=== PATIENT | female | born 1985 | race Caucasian/White ===

== ENCOUNTER 2023-01-17 09:27 | Outpatient (CLI) | payer OTHER, SELFPAY ==
--- NOTE | 2023-01-17 12:00 | NEURO_ITS ---
Impression: # Complains of pain and numbness around thenar eminence following a cat bite. # Normal Nerve Conduction Study. # No Carpal Tunnel Syndrome or ulnar neuropathy. # Needle/EMG exam not requested. # Clinical correlation recommended. #could be related to small branch involvement. Nerve Conduction Studies Anti Sensory Summary Table Stim Site NR Peak (ms) P-T Amp (?V) Site1 Site2 Delta-P (ms) Dist (cm) Juan Alberto (m/s) Right Median Anti Sensory (2-3nd Digit) Wrist 2.6 47.9 Wrist 2-3nd Digit 2.6 14.0 54 Wrist 2.5 86.1 Wrist 2-3nd Digit 2.6 14.0 54 Right Radial Anti Sensory (Base 1st Digit) Wrist 2.1 22.7 Wrist Base 1st Digit 2.1 0.0 Right Ulnar Anti Sensory (5th Digit) Wrist 2.4 72.8 Wrist 5th Digit 2.4 14.0 58 Motor Summary Table Stim Site NR Onset (ms) O-P Amp (mV) Site1 Site2 Delta-0 (ms) Dist (cm) Juan Alberto (m/s) Right Median Motor (Abd Poll Brev) Wrist 2.6 4.1 Elbow Wrist 4.9 28.0 57 Elbow 7.5 2.9 Right Ulnar Motor (Abd Dig Minimi) Wrist 2.8 7.2 A Elbow Wrist 5.0 28.0 56 A Elbow 7.8 6.9 F Wave Studies NR F-Lat (ms) L-R F-Lat (ms) Right Median (Mrkrs) (Abd Poll Brev) 26.67 Right Ulnar (Mrkrs) (Abd Dig Min) 27.39 MTDD
== END 2023-01-17 09:28 | disposition home or self-care (01) ==
LOC: ANHNEURO 09:32
PROVIDERS: PCP Family Medicine; Visit Provider Physician Assistant
DX: R20.2 Paresthesia of skin (principal); R20.0 Anesthesia of skin
CPT/HCPCS: 95909

== ENCOUNTER 2023-06-05 08:37 | Outpatient (CLI) | payer OTHER, SELFPAY ==
--- NOTE | ~2023-06-05 | XR_ITS ---
Lumbosacral Spine: AP and lateral views Clinical History: Pain Findings: The normal lordotic curve is maintained. The vertebral bodies and posterior elements are i ntact. The intervertebral disc spaces are preserved. Mild to moderate facet joint arthropathy presen t. The sacroiliac joints are normally outlined. Impression: Mild to moderate facet arthropathy. Reviewed, dictated and finalized at location . Impression: Mild to moderate facet arthropathy.
== END 2023-06-05 08:38 | disposition home or self-care (01) ==
LOC: CHSIMG 08:40
PROVIDERS: PCP Family Medicine; Visit Provider Physician Assistant
DX: M54.50 Low back pain, unspecified (principal); M12.88 Other specific arthropathies, not elsewhere classified, other specified site
CPT/HCPCS: 72100

== ENCOUNTER 2024-01-15 09:19 | Outpatient (CLI) | payer OTHER, SELFPAY ==
--- NOTE | ~2024-01-15 | MR_ITS ---
EXAMINATION: MR brain/brain stem wo con DATE: 01/15/2024 10:20 INDICATION: Headache, slurred speech and blurred vision TECHNIQUE: Magnetic resonance imaging (MRI) of the brain and brainstem was performed without intraven ous contrast. Sequences included sagittal and axial T1-weighted SE, axial diffusion-weighted FS SE, a xial T2*-weighted GRE, axial T2-weighted FLAIR, and axial T2-weighted FSE. Apparent diffusion coeffic ient (ADC) maps were created. COMPARISON: None. FINDINGS: There are no areas of restricted diffusion to suggest acute infarction. No intracranial hemorrhage or abnormal intracranial mass lesion. There are no intraparenchymal signal abnormalities seen on the ot her pulse sequences. The ventricles are symmetric and normal in size. There are no abnormal extra-axi al fluid collections. Flow voids are seen in the cerebral arteries on the T2-weighted sequences consi stent with their expected patency. Visualized orbits and soft tissues are unremarkable. There are no areas of abnormal enhancement on the post contrast images. IMPRESSION: 1. Normal brain MR Reviewed, dictated and finalized at location B. OR NETWORK SECURITY ARCHITECT IMPRESSION: 1. Normal brain MR
== END 2024-01-15 09:20 | disposition home or self-care (01) ==
LOC: CHSIMG 09:22
PROVIDERS: PCP Family Medicine; Visit Provider Physician Assistant
DX: R47.81 Slurred speech (principal)
CPT/HCPCS: 70551

== ENCOUNTER 2024-06-08 13:16 | Outpatient (CLI) | payer OTHER, SELFPAY ==
--- NOTE | ~2024-06-08 | US_ITS ---
EXAM: PELVIC ULTRASOUND HISTORY: Abnormal uterine bleeding COMPARISON: None. FINDINGS: UTERUS: 8.3 x 3.7 x 4.5 cm. The endometrial complex measures 7.2 mm. RIGHT OVARY: The right ovary is unremarkable in echogenicity and size measuring 3.0 x 3.0 x 2.3 cm. Dopplerable flow is identified. Dominant follicle within the right ovary LEFT OVARY: Despite prolonged interrogation, the left ovary was not visualized. No free fluid is identified within the pelvis. IMPRESSION: Unremarkable sonographic evaluation of the pelvis, as detailed above. Reviewed, dictated and finalized at location A.
--- OUTSIDE RECORDS SUMMARY | 2024-06-08 14:39 | XMS_ITS | Clinical Summary ---
Author Organization [facility] Address [address] [place] [address] Care Team Providers Care Buckram Sewer Name Role Phone Santosh Chandler MD Primary Care Provider Social History Tobacco Use Types Packs/Day Years Used Date Smoking Tobacco: Never Assessed Comments Unknown Sex and Gender Information Value Date Recorded Sex Assigned at Not on file Legal Sex Female 8:06 PM CDT Gender Identity Not on file Sexual Orientation Not on file Last Filed Vital Signs Vital Sign Reading Time Taken Comments Blood Pressure 109/81 07/15/2016 1:49 PM CDT Pulse 79 07/15/2016 1:49 PM CDT Temperature - - Respiratory Rate - - Oxygen Saturation - - Inhaled Oxygen Concentration - - Weight 78.5 kg (173 lb) 07/15/2016 1:49 PM CDT Height 170.2 cm (5' 7 ) 07/15/2016 1:49 PM CDT Body Mass Index 27.1 07/15/2016 1:49 PM CDT Plan of Treatment Health Maintenance Due Date Last Done Comments Cervical Cancer Screening Pa p Smear (Age 30 to 64) Every 3 Years 1984 Annual Physical 09/22/1987 Hepatitis C 2002 DTaP, Tdap and Td Vaccines ( 1 - Tdap) 09/22/2003 Hepatitis B Vaccines (1 of 3 - 19+ 3-dose series) 09/22/2003 Cervical Cancer Screening Pa p with HPV Testing (Age 30 to 64) Every 5 Years 2014 Cervical Cancer Screening with HPV 2014 COVID-19 Vaccine (2023-2 5 season) 2023 HPV Vaccines Aged Out No longer eligi ble based on patient's age to complete this topic Meningococcal B Vaccine Aged Out No l onger eligible based on patient's age to complete this topic Meningococcal Vaccine Aged Out No ike ophelia eligible based on patient's age to complete this topic Pneumococcal Vaccine: Pediat rics (0 to 5 Years) and At-Risk Patients (6 to 64 Years) Aged Out No longer eligible b ased on patient's age to complete this topic RSV Immunizations Under 20 Months Aged Out No longer eligible based on patient's age to complete this topic Insurance [facility] Care Teams Buckram Sewer Relationship Specialty Start Date End Date Santosh Chandler MD [address] [place] [phone] PCP - General FAMILY PRACTICE 04/15/21
--- OUTSIDE RECORDS SUMMARY | 2024-06-08 14:39 | XMS_ITS | Encounter Summary ---
Author Organization [facility] Address [address] [place] [address] Care Team Providers Care Apartment Leasing Manager Name Role Phone Santosh Chandler MD Primary Care Provider [phone] Encounter Details Date Type Department Care Team (Late st Contact Info) Description 08/08/2018 Abstract SFL CONVERSION [address] [place] [address] , Generic Conversion, Social History Tobacco Use Types Packs/Day Years Used Date Smoking Tobacco: Never Assessed Comments Unknown Sex and Gender Information Value Date Recorded Sex Assigned at Not on file Legal Sex Female 8:06 PM CDT Gender Identity Not on file Sexual Orientation Not on file documented as of this encounter Plan of Treatment Not on file documented as of this encounter Visit Diagnoses Not on filedocumented in this encounter Care Teams Apartment Leasing Manager Relationship Specialty Start Date End Date Santosh Chandler MD [address] [place] [phone] PCP - General FAMILY PRACTICE 04/15/21 documented as of this encounter
== END 2024-06-08 13:17 | disposition home or self-care (01) ==
PROVIDERS: PCP Family Medicine; Visit Provider Physician Assistant
DX: N93.9 Abnormal uterine and vaginal bleeding, unspecified (principal)
CPT/HCPCS: 76830; 76856

== ENCOUNTER 2024-06-28 18:18 | Emergency (ER) | payer OTHER, SELFPAY ==
--- NOTE | ~2024-06-28 | XR_ITS ---
EXAM: XR ankle RT min 3V DATE: 06/28/2024 18:41 HISTORY: TWISTED ANKLE, LATERAL SWELLING . COMPARISON: 12/16/2014. FINDINGS: Normal mineralization. No fracture or dislocation. No lytic or blastic lesion. Joint space s are maintained. No erosion or periosteal change. Lateral and anterior soft tissue swelling. Ankle j oint effusion. IMPRESSION: No acute osseous finding in the right ankle. Reviewed, dictated and finalized at location K.
[2024-06-28 18:20] VITALS: BP 125/81; PULSE 91; RESP 16; TEMP 36.6; O2SAT 100
--- OUTSIDE RECORDS SUMMARY | 2024-06-28 18:42 | XMS_ITS | Encounter Summary ---
Author Organization [facility] Address [address] [place] [address] Care Team Providers Care Isotope Technologist Name Role Phone Santosh Chandler MD Primary Care Provider [phone] Encounter Details Date Type Department Care Team (Late st Contact Info) Description 08/08/2018 Abstract SFL CONVERSION [address] [place] [address] , Generic Conversion, Social History Tobacco Use [...] on filedocumented in this encounter Care Teams Isotope Technologist Relationship Specialty Start Date End Date Santosh Chandler MD [address] [place] [phone] PCP - General FAMILY PRACTICE 04/15/21 documented as of this encounter
--- OUTSIDE RECORDS SUMMARY | 2024-06-28 18:42 | XMS_ITS | Clinical Summary ---
Author Organization [facility] Address [address] [place] [address] Care Team Providers Care President/[employer] Name Role Phone Santosh Chandler MD Primary [...] 5 Years) and At-Risk Patients (6 to 49 Years) Aged Out No longer eligible b ased on patient's age to complete this topic RSV Immunizations Under 20 Months Aged Out No longer eligible based on patient's age to complete this topic Insurance [facility] Care Teams President/[employer] Relationship Specialty Start Date End Date Santosh Chandler MD [address] [place] [phone] PCP - General FAMILY PRACTICE 04/15/21
--- NOTE | 2024-06-28 19:37 | ED.LOWEXIN ---
HPI - Extremity Injury (Lower) General Chief Complaint: Extremity Injury, Lower Stated Complaint: ANKLE INJURY Time Seen by Provider: 06/28/24 18:31 Source: patient Mode of arrival: ambulatory Limitations: no limitations History of Present Illness HPI Narrative: Patient is a 38-year-old female with significant past medical history that presents today with right ankle pain. She had a right ankle injury she was going downstairs and stepped on the wrong stare and had an inversion ankle injury. Her right ankle is very swollen around the right malleolus superiorly and inferiorly. She most likely has a inversion ankle sprain but will still require a x-ray at minimal. MD complaint: ankle injury Onset (ago): hour(s) Injury: Right: ankle Type of Injury: inversion Place: home Severity: moderate Severity scale (1-10): 6 Relieving factors: NSAID and cold therapy Exacerbating factors: weight bearing and movement Context: fall Associated symptoms: snap/pop sensation Other symptoms: none Treatments prior to arrival: cold therapy Related Data Allergies Allergy/AdvReac Type Severity Reaction Status Date / Time acetaminophen (From AdvReac Unknown Vomiting Verified 06/28/24 18:25 Tylenol-Codeine #3) codeine (From AdvReac Unknown Vomiting Verified 06/28/24 18:25 Tylenol-Codeine #3) Review of Systems Review of Systems: All systems reviewed & are unremarkable except as noted in HPI and below Constitutional: Constitutional: Reports as per HPI Eyes: Eyes: Reports no additional eye complaints ENT: Reports system reviewed and no additional complaints, except as documented Cardiovascular: Cardiovascular: Reports no additional cardiovascular complaints Respiratory: Respiratory: Reports no additional respiratory complaints Gastrointestinal: Gastrointestinal: Reports no additional gastrointestinal complaints Genitourinary: Genitourinary: Reports no additional female genitourinary complaints Musculoskeletal: Musculoskeletal: Reports as per HPI, Reports arthralgias and Reports joint swelling Integumentary/Breasts: Skin/Breast: Reports system reviewed and no additional complaints, except as docu Neurologic: Reports system reviewed and no additional complaints, except as documented Psychiatric: Psychiatric: Reports no additional psychiatric complaints Endocrine: Endocrine: Reports no additional endocrine complaints Hematologic/Lymphatic: Hematologic/Lymphatic: Reports no additional hematologic/lymphatic complaints Allergic/Immunologic: Allergic/Immunologic: Reports no additional allergic/immunologic complaints Exam Const: General: healthy appearing Nutritional Appearance: well nourished Orientation/consciousness: patient oriented x3 Limitations: no limitations HENMT: Head: normal to inspection Ears: external ears normal Face/Nose/Sinus: Normal external nose present Face and sinus: normal facial exam Mouth: Yes Normal oral and palatal mucosa present Eyes: Conjunctivae: conjunctivae normal Pupils: Equal, round and reactive pupils present EOM: EOMs intact bilaterally Neck: Neck: normal visual inspection Chest: Chest palpation & inspection: normal inspection of the chest Resp: Effort & Inspection: normal respiratory effort Auscultation: clear to auscultation bilaterally Cardio: Rate: regular rate Rhythm: regular rhythm GI: GI Palp: Yes Soft to palpation Back/Spine/Pelvis: Back: no CVA tenderness Skin: General skin exam: normal color Rashes: no rashes Wounds: no wounds Neuro: General: patient oriented x3 Cranial nerves: Yes Nystagmus not present Speech: normal speech Extrem: General: normal to inspection Psych: Mental Status: mental status grossly normal Affect: normal affect Attitude: cooperative Course Vital Signs Vital signs: Vital Signs Oxygen Delivery Room Air 06/28/24 18:18 Temperature 97.9 F 06/28/24 18:20 Pulse Rate 91 06/28/24 18:20 Respiratory Rate 16 06/28/24 18:20 Blood Pressure 125/81 06/28/24 18:20 Pulse Oximetry 100 06/28/24 18:20 Oxygen Delivery Room Air 06/28/24 18:20 MDM - Extremity Injury (Lower) MDM Narrative Medical decision making narrative: Patient most likely has an inversion ankle sprain by the mechanism of injury. She is very swollen around the lateral malleolus. Will do an x-ray to rule any fractures or dislocations. Will apply ice until then. X-ray came back negative for any fractures or dislocations. So most likely this is an inversion ankle sprain. Discussed with her to keep ice on it for the next couple of days and put on a their splint and Geremias wrap as well. Differential Diagnosis Differential diagnosis: Likely ankle sprain and strain Medical Records Attestation: I reviewed the patient's medical records. Imaging Data Attestation: I personally reviewed and interpreted this imaging study as follows: Discharge Plan Discharge Clinical Impression: Ankle sprain and strain Patient Disposition: Home Condition: Stable Instructions: Ankle Sprain (ED) Additional Instructions: additional instructions were given to the patient regarding the splint and strengthening exercises. Patient Language: Montenegrin Follow-up/Referrals: Geraldine,MD Santosh [Primary Care Provider] - Time of Disposition: 19:47
[2024-06-28 19:48] VITALS: BP 115/85; PULSE 71; RESP 18; TEMP 36.3; O2SAT 99
== END 2024-06-28 19:59 | disposition home or self-care (01) ==
PROVIDERS: Emergency Provider Family Medicine; PCP Family Medicine
DX: S93.401A Sprain of unspecified ligament of right ankle, initial encounter (principal); S96.911A Strain of unspecified muscle and tendon at ankle and foot level, right foot, initial encounter; X50.0XXA Overexertion from strenuous movement or load, initial encounter
CPT/HCPCS: 73610; 99283; L4350

== ENCOUNTER 2024-07-27 14:22 | Outpatient (CLI) | payer OTHER, SELFPAY ==
--- NOTE | ~2024-07-27 | XR_ITS ---
[id number] 07/27/2024 15:00 Indication: Radiculopathy Procedure: 3 view cervical spine Comparison: No prior studies for comparison. Findings: Straightening of cervical lordosis. Vertebral body heights are maintained. Mild disc narrow ing at C6-7. There is mild uncinate degenerative change and C6-7. Lung apices are normal. No preverte bral soft tissue swelling. Impression: 1: Mild cervical spondylosis at C6-7. Reviewed, dictated and finalized at location A. Impression: 1: Mild cervical spondylosis at C6-7.
--- NOTE | ~2024-07-27 | XR_ITS ---
HISTORY: RT CSpine Radiculopathy, Posterior Forearm/Finger Numbness COMPARISON: None TECHNIQUE: 3 views of the right shoulder were performed FINDINGS: No acute fracture. The glenohumeral and acromioclavicular joint space is maintained The visualized portion of the adjacent right lung is clear. The humeral head is well seated within the glenoid fossa. IMPRESSION: No acute fracture or anterior dislocation. Reviewed, dictated and finalized at location A.
== END 2024-07-27 14:23 | disposition home or self-care (01) ==
PROVIDERS: PCP Physician Assistant; Visit Provider Physician Assistant
DX: M54.12 Radiculopathy, cervical region (principal); M25.511 Pain in right shoulder
CPT/HCPCS: 72040; 73030